=== PATIENT | female | born 1970 | race Caucasian/White ===

== ENCOUNTER 2018-01-07 15:59 | Emergency (ER) | payer MEDICAID ==
[2018-01-07 17:38] LABS: ADD MAN DIFF? NO
[2018-01-07 17:40] LABS: WHITE BLOOD COUNT 7.9 10^3/ul (4.8-10.8)
[2018-01-07 17:40] LABS: BASOPHIL # 0.1 10^3/ul (0.0-0.1); BASOPHILS % 0.6 % (0.0-2.0); EOSINOPHILS # 0.3 10^3/ul (0.0-0.5); EOSINOPHILS % 3.3 % (0.0-7.0); HEMATOCRIT 35.3 % (37.0-47.0); HEMOGLOBIN 11.1 g/dl (12.0-16.0); LYMPHOCYTES # 1.7 10^3/ul (0.8-2.9); LYMPHOCYTES % 21.4 % (15.0-51.0); MEAN CORPUSCULAR HEMOGLOBIN 28.8 pg (29.0-33.0); MEAN CORPUSCULAR HGB CONC 31.4 g/dl (32.0-37.0); MEAN CORPUSCULAR VOLUME 91.7 fl (82.0-101.0); MEAN PLATELET VOLUME 10.8 fl (7.4-10.4); MONOCYTE # 0.6 10^3/ul (0.3-0.9); MONOCYTES % 7.1 % (0.0-11.0); NEUTROPHIL # 5.3 10^3/ul (1.6-7.5); NEUTROPHILS % 67.2 % (39.0-77.0); PLATELET COUNT 281 10^3/UL (140-415); RED BLOOD COUNT 3.85 10^6/ul (4.20-5.40); RED CELL DISTRIBUTION WIDTH 12.8 % (11.5-14.5)
[2018-01-07 17:48] LABS: ADD UMIC YES; UR ASCORBIC ACID NEGATIVE (NEGATIVE); UR BILIRUBIN (Dip) NEGATIVE (NEGATIVE); UR BLOOD (Dip) 3+ mg/dL (NEGATIVE); UR CLARITY CLEAR (CLEAR); UR COLOR YELLOW (YELLOW); UR GLUCOSE (Dip) NEGATIVE (NEGATIVE); UR KETONES (Dip) NEGATIVE (NEGATIVE); UR LEUKOCYTE ESTERASE (Dip) NEGATIVE Leu/ul (NEGATIVE); UR NITRITE (Dip) NEGATIVE (NEGATIVE); UR RBC 1 /HPF (0-5); UR SPECIFIC GRAVITY (Dip) 1.011 (1.003-1.030); UR TOTAL PROTEIN (Dip) NEGATIVE (NEGATIVE); UR UROBILINOGEN (Dip) NEGATIVE (NEGATIVE); UR WBC 2 /HPF (0-5)
[2018-01-07 18:23] LABS: ALANINE AMINOTRANSFERASE 23 IU/L (13-69); ALBUMIN 4.4 g/dl (3.3-4.9); ALBUMIN/GLOBULIN RATIO 1.22; ALKALINE PHOSPHATASE 95 IU/L (42-121); ANION GAP 15 (8-16); ASPARTATE AMINO TRANSFERASE 21 IU/L (15-46); BILIRUBIN,INDIRECT 0.3 mg/dl (0-1.1); BILIRUBIN,TOTAL 0.3 mg/dl (0.2-1.3); BLOOD UREA NITROGEN 9 mg/dl (7-20); CALCIUM 9.2 mg/dl (8.4-10.2); CARBON DIOXIDE 29 mmol/L (21-31); CHLORIDE 104 mmol/L (97-110); CREATININE 0.69 mg/dl (0.44-1.00); GLUCOSE 98 mg/dl (70-220); LIPASE 69 U/L (23-300); POTASSIUM 3.6 mmol/L (3.5-5.1); SODIUM 144 mmol/L (135-144)
== END 2018-01-07 19:45 | disposition home or self-care (01) ==
LOC: FTE 15:59
DX: D25.9 Leiomyoma of uterus, unspecified (principal)
CPT/HCPCS: 74176; 76830; 76856; 80053; 81001; 81025; 83690; 85025; 99285-25

== ENCOUNTER 2018-02-01 15:16 | Emergency (ER) | payer MEDICAID ==
[2018-02-01 17:15] LABS: URINE BLOOD (Dip) POC 3+ (NEGATIVE); URINE GLUCOSE (Dip) POC Negative (NEGATIVE); URINE KETONES (Dip) POC Negative (NEGATIVE); URINE LEUKOCYTE EST (Dip) POC 2+ (NEGATIVE); URINE NITRITE (Dip) POC Negative (NEGATIVE); URINE TOTAL PROTEIN POC 1+ (NEGATIVE)
[2018-02-01 17:15] LABS: URINE PH (Dip) POC 5.5 (5.0-8.5)
[2018-02-01] MEDS: ACETAMINOPHEN 500 MG TAB PO (17:30)
[2018-02-01] MEDS: ONDANSETRON 4 MG INJ IV (17:30)
[2018-02-01 17:33] LABS: ADD MAN DIFF? NO
[2018-02-01 17:35] LABS: WHITE BLOOD COUNT 9.4 10^3/ul (4.8-10.8)
[2018-02-01 17:35] LABS: BASOPHILS % 0.4 % (0.0-2.0); EOSINOPHILS # 0.2 10^3/ul (0.0-0.5); EOSINOPHILS % 2.3 % (0.0-7.0); HEMATOCRIT 37.8 % (37.0-47.0); HEMOGLOBIN 11.9 g/dl (12.0-16.0); LYMPHOCYTES # 1.6 10^3/ul (0.8-2.9); MEAN CORPUSCULAR HEMOGLOBIN 27.8 pg (29.0-33.0); MEAN CORPUSCULAR HGB CONC 31.5 g/dl (32.0-37.0); MEAN CORPUSCULAR VOLUME 88.3 fl (82.0-101.0); MEAN PLATELET VOLUME 11.2 fl (7.4-10.4); MONOCYTE # 0.8 10^3/ul (0.3-0.9); MONOCYTES % 8.1 % (0.0-11.0); NEUTROPHIL # 6.8 10^3/ul (1.6-7.5); NEUTROPHILS % 71.9 % (39.0-77.0); PLATELET COUNT 203 10^3/UL (140-415); RED BLOOD COUNT 4.28 10^6/ul (4.20-5.40); RED CELL DISTRIBUTION WIDTH 13.8 % (11.5-14.5)
[2018-02-01 17:53] LABS: ALANINE AMINOTRANSFERASE 29 IU/L (13-69); ALBUMIN 4.6 g/dl (3.3-4.9); ALBUMIN/GLOBULIN RATIO 1.31; ALKALINE PHOSPHATASE 78 IU/L (42-121); ANION GAP 15 (8-16); ASPARTATE AMINO TRANSFERASE 23 IU/L (15-46); BILIRUBIN,INDIRECT 0.5 mg/dl (0-1.1); BILIRUBIN,TOTAL 0.5 mg/dl (0.2-1.3); BLOOD UREA NITROGEN 8 mg/dl (7-20); CALCIUM 9.4 mg/dl (8.4-10.2); CARBON DIOXIDE 27 mmol/L (21-31); CHLORIDE 105 mmol/L (97-110); GLUCOSE 106 mg/dl (70-220); LIPASE 33 U/L (23-300); POTASSIUM 3.8 mmol/L (3.5-5.1); SODIUM 143 mmol/L (135-144); TOTAL PROTEIN 8.1 g/dl (6.1-8.1)
[2018-02-01 18:08] LABS: ADD UMIC YES; UR ASCORBIC ACID NEGATIVE (NEGATIVE); UR BACTERIA FEW /HPF (NONE SEEN); UR BILIRUBIN (Dip) NEGATIVE (NEGATIVE); UR BLOOD (Dip) 3+ mg/dL (NEGATIVE); UR CLARITY SLIGHTLY CLOUDY (CLEAR); UR COLOR YELLOW (YELLOW); UR GLUCOSE (Dip) NEGATIVE (NEGATIVE); UR KETONES (Dip) NEGATIVE (NEGATIVE); UR LEUKOCYTE ESTERASE (Dip) 3+ Leu/ul (NEGATIVE); UR NITRITE (Dip) NEGATIVE (NEGATIVE); UR RBC 6 /HPF (0-5); UR SPECIFIC GRAVITY (Dip) 1.005 (1.003-1.030); UR SQUAMOUS EPITHELIAL CELL MODERATE /HPF (FEW); UR TOTAL PROTEIN (Dip) NEGATIVE (NEGATIVE); UR UROBILINOGEN (Dip) NEGATIVE (NEGATIVE); UR WBC 18 /HPF (0-5)
== END 2018-02-01 19:50 | disposition home or self-care (01) ==
LOC: FTE 15:16
DX: D25.9 Leiomyoma of uterus, unspecified (principal); R10.2 Pelvic and perineal pain; R11.10 Vomiting, unspecified
CPT/HCPCS: 36415; 76856; 80053; 81001; 81003; 81025; 83690; 85025; 88305; 96374; 99285-25

== ENCOUNTER 2018-02-04 14:21 | Emergency (ER) | payer MEDICAID ==
[2018-02-04 15:45] LABS: URINE BLOOD (Dip) POC 3+ (NEGATIVE); URINE GLUCOSE (Dip) POC Negative (NEGATIVE); URINE KETONES (Dip) POC 1+ (NEGATIVE); URINE LEUKOCYTE EST (Dip) POC 1+ (NEGATIVE); URINE NITRITE (Dip) POC Negative (NEGATIVE); URINE TOTAL PROTEIN POC 2+ (NEGATIVE)
[2018-02-04 15:45] LABS: URINE PH (Dip) POC 6.5 (5.0-8.5)
[2018-02-04] MEDS: morphine 4 MG/ML VIAL IV (15:47)
[2018-02-04] MEDS: ONDANSETRON 4 MG INJ IV (15:47)
[2018-02-04] MEDS: SOD CHLORIDE 0.9% 1,000 ML IV (15:47)
[2018-02-04 15:48] LABS: ADD MAN DIFF? NO
[2018-02-04 15:52] LABS: BASOPHILS % 0.3 % (0.0-2.0); EOSINOPHILS # 0.1 10^3/ul (0.0-0.5); EOSINOPHILS % 0.5 % (0.0-7.0); HEMOGLOBIN 12.2 g/dl (12.0-16.0); LYMPHOCYTES # 0.8 10^3/ul (0.8-2.9); MEAN CORPUSCULAR HEMOGLOBIN 28.8 pg (29.0-33.0); MEAN CORPUSCULAR HGB CONC 32.1 g/dl (32.0-37.0); MEAN CORPUSCULAR VOLUME 89.6 fl (82.0-101.0); MEAN PLATELET VOLUME 10.7 fl (7.4-10.4); MONOCYTE # 0.7 10^3/ul (0.3-0.9); MONOCYTES % 5.3 % (0.0-11.0); NEUTROPHIL # 11.2 10^3/ul (1.6-7.5); NEUTROPHILS % 87.5 % (39.0-77.0); PLATELET COUNT 237 10^3/UL (140-415); RED BLOOD COUNT 4.24 10^6/ul (4.20-5.40); RED CELL DISTRIBUTION WIDTH 13.1 % (11.5-14.5)
[2018-02-04 15:52] LABS: WHITE BLOOD COUNT 12.8 10^3/ul (4.8-10.8)
[2018-02-04 15:59] LABS: ADD UMIC YES; UR ASCORBIC ACID NEGATIVE (NEGATIVE); UR BACTERIA FEW /HPF (NONE SEEN); UR BILIRUBIN (Dip) NEGATIVE (NEGATIVE); UR BLOOD (Dip) 3+ mg/dL (NEGATIVE); UR CLARITY CLOUDY (CLEAR); UR COLOR YELLOW (YELLOW); UR GLUCOSE (Dip) NEGATIVE (NEGATIVE); UR KETONES (Dip) TRACE mg/dL (NEGATIVE); UR LEUKOCYTE ESTERASE (Dip) 3+ Leu/ul (NEGATIVE); UR MUCUS FEW /HPF (NONE SEEN); UR NITRITE (Dip) NEGATIVE (NEGATIVE); UR RBC > 182 /HPF (0-5); UR SQUAMOUS EPITHELIAL CELL FEW /HPF (FEW); UR TOTAL PROTEIN (Dip) 2+ mg/dl (NEGATIVE); UR UROBILINOGEN (Dip) 1+ mg/dL (NEGATIVE); UR WBC > 182 /HPF (0-5)
[2018-02-04 16:10] LABS: LIPASE 27 U/L (23-300)
[2018-02-04 16:12] LABS: ALANINE AMINOTRANSFERASE 30 IU/L (13-69); ALBUMIN 4.5 g/dl (3.3-4.9); ALBUMIN/GLOBULIN RATIO 1.36; ALKALINE PHOSPHATASE 80 IU/L (42-121); ANION GAP 13 (8-16); ASPARTATE AMINO TRANSFERASE 20 IU/L (15-46); BILIRUBIN,INDIRECT 0.7 mg/dl (0-1.1); BILIRUBIN,TOTAL 0.7 mg/dl (0.2-1.3); BLOOD UREA NITROGEN 10 mg/dl (7-20); CALCIUM 9.1 mg/dl (8.4-10.2); CARBON DIOXIDE 26 mmol/L (21-31); CHLORIDE 104 mmol/L (97-110); CREATININE 0.64 mg/dl (0.44-1.00); GLUCOSE 130 mg/dl (70-220); POTASSIUM 3.4 mmol/L (3.5-5.1); SODIUM 140 mmol/L (135-144); TOTAL PROTEIN 7.8 g/dl (6.1-8.1)
== END 2018-02-04 17:35 | disposition home or self-care (01) ==
LOC: FTE 14:21
DX: D25.9 Leiomyoma of uterus, unspecified (principal)
CPT/HCPCS: 36415; 76856; 80053; 81001; 81003; 81025; 83690; 85025; 87086; 96361; 96374; 96375; 99285-25

== ENCOUNTER 2018-02-06 22:33 | Inpatient (IN) | payer MEDICAID ==
[2018-02-06 22:56] LABS: ADD MAN DIFF? NO
[2018-02-06 22:58] LABS: BASOPHILS % 0.5 % (0.0-2.0); EOSINOPHILS % 0.3 % (0.0-7.0); HEMATOCRIT 35.6 % (37.0-47.0); HEMOGLOBIN 11.4 g/dl (12.0-16.0); LYMPHOCYTES # 1.5 10^3/ul (0.8-2.9); LYMPHOCYTES % 20.8 % (15.0-51.0); MEAN CORPUSCULAR VOLUME 87.5 fl (82.0-101.0); MEAN PLATELET VOLUME 10.7 fl (7.4-10.4); MONOCYTE # 0.1 10^3/ul (0.3-0.9); MONOCYTES % 1.8 % (0.0-11.0); NEUTROPHIL # 5.5 10^3/ul (1.6-7.5); NEUTROPHILS % 74.7 % (39.0-77.0); PLATELET COUNT 212 10^3/UL (140-415); RED BLOOD COUNT 4.07 10^6/ul (4.20-5.40); RED CELL DISTRIBUTION WIDTH 13.1 % (11.5-14.5)
[2018-02-06 22:58] LABS: WHITE BLOOD COUNT 7.4 10^3/ul (4.8-10.8)
[2018-02-06] MEDS: ONDANSETRON 4 MG INJ IV ×2 (23:09→23:49)
[2018-02-06] MEDS: ACETAMINOPHEN 325 MG TAB PO (23:09)
[2018-02-06] MEDS: SOD CHLORIDE 0.9% 1,000 ML IV (23:10)
[2018-02-06] MEDS: morphine 4 MG/ML VIAL IV (23:10)
[2018-02-06 23:16] LABS: ALANINE AMINOTRANSFERASE 39 IU/L (13-69); ALBUMIN 4.1 g/dl (3.3-4.9); ALBUMIN/GLOBULIN RATIO 1.28; ALKALINE PHOSPHATASE 104 IU/L (42-121); ANION GAP 17 (8-16); ASPARTATE AMINO TRANSFERASE 64 IU/L (15-46); BILIRUBIN,INDIRECT 0.5 mg/dl (0-1.1); BILIRUBIN,TOTAL 0.5 mg/dl (0.2-1.3); BLOOD UREA NITROGEN 5 mg/dl (7-20); CALCIUM 8.8 mg/dl (8.4-10.2); CARBON DIOXIDE 25 mmol/L (21-31); CHLORIDE 101 mmol/L (97-110); CREATININE 0.92 mg/dl (0.44-1.00); GLUCOSE 144 mg/dl (70-220); LIPASE 38 U/L (23-300); POTASSIUM 3.6 mmol/L (3.5-5.1); SODIUM 139 mmol/L (135-144); TOTAL PROTEIN 7.3 g/dl (6.1-8.1)
[2018-02-06 23:19] LABS: INR 1.12; PROTIME 14.6 Sec (11.9-14.9); PT RATIO 1.1
[2018-02-06 23:19] LABS: LACTIC ACID 5.6 mmol/L (0.5-2.0)
[2018-02-06 23:20] LABS: PARTIAL THROMBOPLASTIN TIME 28.1 Sec (25.0-35.0)
[2018-02-06 23:27] LABS: TROPONIN-I < 0.010 ng/ml (0.000-0.120)
[2018-02-07] MEDS: CEFEPIME 2GM/50 ML (PMX) 50 ML IVPB (00:19)
[2018-02-07] MEDS: SODIUM CHLORIDE 0.9% 1L BAG IV* (00:19)
[2018-02-07] MEDS: METOCLOPRAMIDE 10 MG INJ IV (00:19)
[2018-02-07] MEDS: VANCOMYCIN 1 GM (PMX) 250 ML IVPB (00:40)
[2018-02-07 01:06] LABS: LACTIC ACID 2.4 mmol/L (0.5-2.0)
[2018-02-07 01:49] LABS: ADD UMIC YES; UR ASCORBIC ACID 20 mg/dL (NEGATIVE); UR BACTERIA FEW /HPF (NONE SEEN); UR BILIRUBIN (Dip) NEGATIVE (NEGATIVE); UR BLOOD (Dip) 3+ mg/dL (NEGATIVE); UR CLARITY CLEAR (CLEAR); UR COLOR YELLOW (YELLOW); UR GLUCOSE (Dip) NEGATIVE (NEGATIVE); UR KETONES (Dip) NEGATIVE (NEGATIVE); UR LEUKOCYTE ESTERASE (Dip) 1+ Leu/ul (NEGATIVE); UR MUCUS FEW /HPF (NONE SEEN); UR NITRITE (Dip) NEGATIVE (NEGATIVE); UR RBC 55 /HPF (0-5); UR SPECIFIC GRAVITY (Dip) 1.012 (1.003-1.030); UR TOTAL PROTEIN (Dip) NEGATIVE (NEGATIVE); UR UROBILINOGEN (Dip) NEGATIVE (NEGATIVE); UR WBC 15 /HPF (0-5)
[2018-02-07] MEDS: ACETAMINOPHEN 500 MG TAB PO (02:55)
[2018-02-07] MEDS: IBUPROFEN 600 MG TAB PO (02:55)
[2018-02-07] MEDS: SOD CHLORIDE 0.9% 1,000 ML IV ×2 (04:29→15:09)
[2018-02-07] MEDS: HYDROCODONE/APAP (5/325) TAB PO ×2 (04:36→15:04)
[2018-02-07] MEDS ORDERED: SOD CHLORIDE 0.9% 1,000 ML IV (06:30)
[2018-02-07 07:25] LABS: ADD MAN DIFF? NO
[2018-02-07 07:32] LABS: WHITE BLOOD COUNT 8.5 10^3/ul (4.8-10.8)
[2018-02-07 07:32] LABS: ABNORMAL IP MESSAGE 1; BASOPHILS % 0.1 % (0.0-2.0); HEMATOCRIT 28.7 % (37.0-47.0); LYMPHOCYTES # 0.4 10^3/ul (0.8-2.9); LYMPHOCYTES % 5.2 % (15.0-51.0); MEAN CORPUSCULAR HEMOGLOBIN 27.4 pg (29.0-33.0); MEAN CORPUSCULAR HGB CONC 31.4 g/dl (32.0-37.0); MEAN CORPUSCULAR VOLUME 87.2 fl (82.0-101.0); MEAN PLATELET VOLUME 10.6 fl (7.4-10.4); MONOCYTE # 0.3 10^3/ul (0.3-0.9); MONOCYTES % 3.2 % (0.0-11.0); NEUTROPHIL # 7.6 10^3/ul (1.6-7.5); NEUTROPHILS % 89.9 % (39.0-77.0); PLATELET COUNT 156 10^3/UL (140-415); RED BLOOD COUNT 3.29 10^6/ul (4.20-5.40); RED CELL DISTRIBUTION WIDTH 13.5 % (11.5-14.5)
[2018-02-07 07:35] LABS: POSITIVE DIFF @See below
[2018-02-07 07:52] LABS: LACTIC ACID 1.4 mmol/L (0.5-2.0)
[2018-02-07 08:17] LABS: ALANINE AMINOTRANSFERASE 77 IU/L (13-69); ALBUMIN 2.5 g/dl (3.3-4.9); ALBUMIN/GLOBULIN RATIO 1.04; ALKALINE PHOSPHATASE 75 IU/L (42-121); ANION GAP 12 (8-16); ASPARTATE AMINO TRANSFERASE 95 IU/L (15-46); BILIRUBIN,INDIRECT 0.4 mg/dl (0-1.1); BILIRUBIN,TOTAL 0.4 mg/dl (0.2-1.3); BLOOD UREA NITROGEN 8 mg/dl (7-20); CALCIUM 6.9 mg/dl (8.4-10.2); CARBON DIOXIDE 21 mmol/L (21-31); CHLORIDE 111 mmol/L (97-110); CREATININE 0.68 mg/dl (0.44-1.00); GLUCOSE 108 mg/dl (70-220); MAGNESIUM 1.4 mg/dl (1.7-2.5); PHOSPHORUS 1.8 mg/dl (2.5-4.9); SODIUM 141 mmol/L (135-144); TOTAL PROTEIN 4.9 g/dl (6.1-8.1)
[2018-02-07 08:26] LABS: POTASSIUM 2.6 mmol/L (3.5-5.1)
[2018-02-07] MEDS: MEROPENEM 500MG/50 ML (PMX) 50 ML IVPB (09:11)
[2018-02-07] MEDS ORDERED: VANCOMYCIN IV PER PHARMACY XX (12:00)
[2018-02-07] MEDS: POTASSIUM CHLORIDE 100 ML IVPB ×3 (12:02→17:54)
[2018-02-07] MEDS: MAGNESIUM SULFATE 3 GM in DEXTROSE 5% 100 ML IVPB (12:19)
[2018-02-07] MEDS ORDERED: MEROPENEM 1 GM/50ML(PMX) 50 ML IVPB (14:00)
[2018-02-07] MEDS ORDERED: VANCOMYCIN 1.25 GM in SOD CHLORIDE 0.9% 250 ML IVPB (15:00)
[2018-02-07] MEDS: ONDANSETRON 4 MG INJ IV (15:17)
[2018-02-07] MEDS: traMADol 50 MG TAB PO ×2 (15:47→20:12)
[2018-02-07] MEDS: POTASSIUM PHOSPHATE 30 MM in SOD CHLORIDE 0.9% 250 ML IVPB (16:30)
[2018-02-07] MEDS: ACETAMINOPHEN 325 MG TAB PO (20:11)
[2018-02-07] MEDS: MEROPENEM 1 GM/50ML(PMX) 50 ML IVPB (21:58)
[2018-02-07 22:29] LABS: POTASSIUM 3.4 mmol/L (3.5-5.1)
[2018-02-07] MEDS: VANCOMYCIN 1.25 GM in SOD CHLORIDE 0.9% 250 ML IVPB (22:50)
[2018-02-08] MEDS: SOD CHLORIDE 0.9% 1,000 ML IV ×4 (00:30→21:00)
[2018-02-08] MEDS: POTASSIUM CHLORIDE 100 ML IVPB ×2 (03:55→06:20)
[2018-02-08] MEDS: traMADol 50 MG TAB PO ×2 (04:51→18:43)
[2018-02-08 06:59] LABS: HEMATOCRIT 31.5 % (37.0-47.0); HEMOGLOBIN 9.9 g/dl (12.0-16.0); MEAN CORPUSCULAR HEMOGLOBIN 27.7 pg (29.0-33.0); MEAN CORPUSCULAR HGB CONC 31.4 g/dl (32.0-37.0); MEAN PLATELET VOLUME 11.2 fl (7.4-10.4); PLATELET COUNT 158 10^3/UL (140-415); RED BLOOD COUNT 3.58 10^6/ul (4.20-5.40); RED CELL DISTRIBUTION WIDTH 13.9 % (11.5-14.5)
[2018-02-08 07:06] LABS: POSITIVE DIFF @See below
[2018-02-08 07:07] LABS: ADD MAN DIFF? YES
[2018-02-08 07:11] LABS: HEMOGLOBIN A1C 5.8 % (0-5.9)
[2018-02-08 07:42] LABS: MAGNESIUM 2.4 mg/dl (1.7-2.5)
[2018-02-08 07:42] LABS: PHOSPHORUS 2.3 mg/dl (2.5-4.9)
[2018-02-08 07:47] LABS: ALANINE AMINOTRANSFERASE 76 IU/L (13-69); ALBUMIN 3.1 g/dl (3.3-4.9); ALBUMIN/GLOBULIN RATIO 1.14; ALKALINE PHOSPHATASE 93 IU/L (42-121); ANION GAP 11 (8-16); ASPARTATE AMINO TRANSFERASE 76 IU/L (15-46); BILIRUBIN,INDIRECT 0.6 mg/dl (0-1.1); BILIRUBIN,TOTAL 0.6 mg/dl (0.2-1.3); BLOOD UREA NITROGEN 7 mg/dl (7-20); CALCIUM 7.4 mg/dl (8.4-10.2); CARBON DIOXIDE 20 mmol/L (21-31); CHLORIDE 111 mmol/L (97-110); CREATININE 0.59 mg/dl (0.44-1.00); GLUCOSE 87 mg/dl (70-220); POTASSIUM 4.2 mmol/L (3.5-5.1); SODIUM 138 mmol/L (135-144); TOTAL PROTEIN 5.8 g/dl (6.1-8.1)
[2018-02-08 08:09] LABS: CHOL/HDL RATIO 4.7 RATIO; HDL CHOLESTEROL 24 mg/dl (34-88); LDL CHOLESTEROL,CALCULATED 38 mg/dl; TRIGLYCERIDES 254 mg/dl (0-149)
[2018-02-08 08:09] LABS: CHOLESTEROL 113 mg/dl (100-200)
[2018-02-08] MEDS: MEROPENEM 1 GM/50ML(PMX) 50 ML IVPB ×3 (08:44→21:50)
[2018-02-08 09:54] LABS: ANISOCYTOSIS 1+ (0-0); BAND NEUTROPHILS #M 3.5 10^3/ul (0.0-0.6); BAND NEUTROPHILS % (M) 35 % (0-4); GIANT THROMBO% (M) 2 % (0-0); LYMPHOCYTES #M 0.3 10^3/ul (0.8-2.9); LYMPHOCYTES % (M) 3 % (15-51); MICROCYTOSIS 1+ (0-0); MONOCYTE #M 0.3 10^3/ul (0.3-0.9); MONOCYTES % (M) 3 % (0-11); PLATELET ESTIMATE NORMAL; POIKILOCYTOSIS 1+ (0-0); POLYCHROMASIA 1+ (0-0); SEG NEUT #M 6.3 10^3/ul (1.6-7.5); SEGMENTED NEUTROPHILS (M) % 59 % (39-77); SMUDGE%M 6 % (0-0)
[2018-02-08] MEDS: ONDANSETRON 4 MG INJ IV (11:48)
[2018-02-08] MEDS: VANCOMYCIN 1.25 GM in SOD CHLORIDE 0.9% 250 ML IVPB ×2 (11:49→23:00)
[2018-02-08] MEDS: HYDROmorphONE 1 MG/ML SYG IV ×2 (12:12→21:45)
[2018-02-09] MEDS: HYDROmorphONE 1 MG/ML SYG IV ×2 (04:23→13:00)
[2018-02-09] MEDS: SOD CHLORIDE 0.9% 1,000 ML IV ×3 (04:25→21:00)
[2018-02-09] MEDS: MEROPENEM 1 GM/50ML(PMX) 50 ML IVPB (05:24)
[2018-02-09 08:27] LABS: ADD MAN DIFF? NO
[2018-02-09 08:36] LABS: BASOPHILS % 0.3 % (0.0-2.0); EOSINOPHILS % 0.4 % (0.0-7.0); HEMATOCRIT 29.3 % (37.0-47.0); HEMOGLOBIN 9.5 g/dl (12.0-16.0); LYMPHOCYTES # 1.2 10^3/ul (0.8-2.9); LYMPHOCYTES % 11.1 % (15.0-51.0); MEAN CORPUSCULAR HEMOGLOBIN 28.4 pg (29.0-33.0); MEAN CORPUSCULAR HGB CONC 32.4 g/dl (32.0-37.0); MEAN CORPUSCULAR VOLUME 87.5 fl (82.0-101.0); MEAN PLATELET VOLUME 11.3 fl (7.4-10.4); MONOCYTE # 0.5 10^3/ul (0.3-0.9); NEUTROPHIL # 8.7 10^3/ul (1.6-7.5); PLATELET COUNT 190 10^3/UL (140-415); RED BLOOD COUNT 3.35 10^6/ul (4.20-5.40); RED CELL DISTRIBUTION WIDTH 13.8 % (11.5-14.5)
[2018-02-09 08:36] LABS: WHITE BLOOD COUNT 10.6 10^3/ul (4.8-10.8)
[2018-02-09 09:01] LABS: MAGNESIUM 1.9 mg/dl (1.7-2.5)
[2018-02-09 09:02] LABS: ALANINE AMINOTRANSFERASE 54 IU/L (13-69); ALBUMIN 3.1 g/dl (3.3-4.9); ALKALINE PHOSPHATASE 94 IU/L (42-121); ANION GAP 9 (8-16); ASPARTATE AMINO TRANSFERASE 47 IU/L (15-46); BILIRUBIN,INDIRECT 0.6 mg/dl (0-1.1); BILIRUBIN,TOTAL 0.6 mg/dl (0.2-1.3); BLOOD UREA NITROGEN 6 mg/dl (7-20); CALCIUM 7.7 mg/dl (8.4-10.2); CARBON DIOXIDE 28 mmol/L (21-31); CHLORIDE 104 mmol/L (97-110); CREATININE 0.47 mg/dl (0.44-1.00); GLUCOSE 96 mg/dl (70-220); POTASSIUM 3.1 mmol/L (3.5-5.1); SODIUM 138 mmol/L (135-144); TOTAL PROTEIN 5.9 g/dl (6.1-8.1)
[2018-02-09] MEDS: FLUCONAZOLE 200 MG TAB PO (11:14)
[2018-02-09] MEDS: CEFTRIAXONE 1 GM/50 ML (PMX) 50 ML IVPB (11:14)
[2018-02-09 12:00] LABS: VANCOMYCIN,TROUGH < 5.0 ug/ml (10.0-20.0)
[2018-02-09] MEDS: POTASSIUM PHOSPHATE 30 MM in SOD CHLORIDE 0.9% 250 ML IVPB (16:03)
[2018-02-09] MEDS: HYDROCODONE/APAP (5/325) TAB PO ×2 (16:09→21:24)
[2018-02-10] MEDS: SOD CHLORIDE 0.9% 1,000 ML IV ×3 (02:09→21:30)
[2018-02-10] MEDS: HYDROCODONE/APAP (5/325) TAB PO ×2 (05:14→18:54)
[2018-02-10 06:37] LABS: ADD MAN DIFF? NO
[2018-02-10 06:47] LABS: BASOPHILS % 0.3 % (0.0-2.0); EOSINOPHILS # 0.1 10^3/ul (0.0-0.5); HEMATOCRIT 30.7 % (37.0-47.0); HEMOGLOBIN 9.8 g/dl (12.0-16.0); LYMPHOCYTES # 1.1 10^3/ul (0.8-2.9); LYMPHOCYTES % 11.5 % (15.0-51.0); MEAN CORPUSCULAR HEMOGLOBIN 27.1 pg (29.0-33.0); MEAN CORPUSCULAR HGB CONC 31.9 g/dl (32.0-37.0); MEAN CORPUSCULAR VOLUME 84.8 fl (82.0-101.0); MEAN PLATELET VOLUME 11.2 fl (7.4-10.4); MONOCYTE # 0.7 10^3/ul (0.3-0.9); MONOCYTES % 6.9 % (0.0-11.0); NEUTROPHIL # 7.4 10^3/ul (1.6-7.5); NEUTROPHILS % 77.9 % (39.0-77.0); PLATELET COUNT 206 10^3/UL (140-415); RED BLOOD COUNT 3.62 10^6/ul (4.20-5.40); RED CELL DISTRIBUTION WIDTH 13.9 % (11.5-14.5)
[2018-02-10 06:47] LABS: WHITE BLOOD COUNT 9.5 10^3/ul (4.8-10.8)
[2018-02-10 07:05] LABS: ANION GAP 11 (8-16); BLOOD UREA NITROGEN 5 mg/dl (7-20); CALCIUM 8.3 mg/dl (8.4-10.2); CARBON DIOXIDE 29 mmol/L (21-31); CHLORIDE 101 mmol/L (97-110); CREATININE 0.48 mg/dl (0.44-1.00); GLUCOSE 104 mg/dl (70-220); SODIUM 138 mmol/L (135-144)
[2018-02-10 07:07] LABS: MAGNESIUM 1.8 mg/dl (1.7-2.5)
[2018-02-10 07:07] LABS: PHOSPHORUS 2.7 mg/dl (2.5-4.9)
[2018-02-10] MEDS: POTASSIUM CHLORIDE (SR) 20 MEQ TAB PO (08:55)
[2018-02-10] MEDS: CEFTRIAXONE 1 GM/50 ML (PMX) 50 ML IVPB (10:27)
[2018-02-10] MEDS ORDERED: D5W-0.45 NACL + KCL 20 MEQ 1,000 ML IV (11:00)
[2018-02-10] MEDS: HYDROmorphONE 1 MG/ML SYG IV (22:41)
[2018-02-11] MEDS: hydrALAzine 20 MG INJ IV (00:29)
[2018-02-11] MEDS: HYDROCODONE/APAP (5/325) TAB PO ×2 (01:33→21:50)
[2018-02-11] MEDS: SOD CHLORIDE 0.9% 1,000 ML IV ×2 (04:49→05:00)
[2018-02-11] MEDS: CEFTRIAXONE 1 GM/50 ML (PMX) 50 ML IVPB (10:52)
[2018-02-11] MEDS: ACETAMINOPHEN 325 MG TAB PO (15:42)
[2018-02-12] MEDS: ACETAMINOPHEN 325 MG TAB PO ×3 (01:54→21:38)
[2018-02-12 06:18] LABS: HEMOGLOBIN 10.3 g/dl (12.0-16.0); MEAN CORPUSCULAR HEMOGLOBIN 26.7 pg (29.0-33.0); MEAN CORPUSCULAR HGB CONC 31.2 g/dl (32.0-37.0); MEAN CORPUSCULAR VOLUME 85.5 fl (82.0-101.0); MEAN PLATELET VOLUME 11.2 fl (7.4-10.4); PLATELET COUNT 312 10^3/UL (140-415); RED BLOOD COUNT 3.86 10^6/ul (4.20-5.40); RED CELL DISTRIBUTION WIDTH 14.4 % (11.5-14.5)
[2018-02-12 06:18] LABS: WHITE BLOOD COUNT 10.6 10^3/ul (4.8-10.8)
[2018-02-12 06:23] LABS: ADD MAN DIFF? YES; POSITIVE DIFF @See below
[2018-02-12 06:35] LABS: PHOSPHORUS 4.2 mg/dl (2.5-4.9)
[2018-02-12 06:35] LABS: MAGNESIUM 1.9 mg/dl (1.7-2.5)
[2018-02-12 06:43] LABS: ANION GAP 10 (8-16); BLOOD UREA NITROGEN 6 mg/dl (7-20); CALCIUM 8.7 mg/dl (8.4-10.2); CARBON DIOXIDE 29 mmol/L (21-31); CHLORIDE 103 mmol/L (97-110); GLUCOSE 97 mg/dl (70-220); POTASSIUM 3.3 mmol/L (3.5-5.1); SODIUM 139 mmol/L (135-144)
[2018-02-12 07:58] LABS: BAND NEUTROPHILS #M 0.1 10^3/ul (0.0-0.6); BAND NEUTROPHILS % (M) 1 % (0-4); EOSINOPHILS % (M) 4 % (0-7); LYMPHOCYTES #M 1.1 10^3/ul (0.8-2.9); LYMPHOCYTES % (M) 11 % (15-51); METAMYELOCYTES #M 0.2 10^3/ul (0.0-0.0); METAMYELOCYTES %M 2 % (0-0); MONOCYTE #M 0.8 10^3/ul (0.3-0.9); MONOCYTES % (M) 8 % (0-11); PLATELET ESTIMATE NORMAL; POLYCHROMASIA 1+ (0-0); SEG NEUT #M 7.9 10^3/ul (1.6-7.5); SEGMENTED NEUTROPHILS (M) % 74 % (39-77); SMUDGE%M 7 % (0-0)
[2018-02-12] MEDS: POTASSIUM CHLORIDE (SR) 20 MEQ TAB PO (10:32)
[2018-02-12] MEDS: CEFTRIAXONE 1 GM/50 ML (PMX) 50 ML IVPB (10:32)
[2018-02-12] MEDS: HYDROCODONE/APAP (5/325) TAB PO (23:08)
[2018-02-13] MEDS: CEFTRIAXONE 1 GM/50 ML (PMX) 50 ML IVPB (11:01)
[2018-02-13] MEDS: HYDROCODONE/APAP (5/325) TAB PO (18:54)
[2018-02-13] MEDS: traMADol 50 MG TAB PO (21:01)
[2018-02-14] MEDS: ACETAMINOPHEN 325 MG TAB PO ×3 (01:42→17:52)
[2018-02-14 06:00] LABS: ADD MAN DIFF? NO
[2018-02-14 06:06] LABS: WHITE BLOOD COUNT 11.4 10^3/ul (4.8-10.8)
[2018-02-14 06:06] LABS: BASOPHIL # 0.1 10^3/ul (0.0-0.1); BASOPHILS % 0.4 % (0.0-2.0); EOSINOPHILS # 0.3 10^3/ul (0.0-0.5); EOSINOPHILS % 2.5 % (0.0-7.0); HEMATOCRIT 36.7 % (37.0-47.0); HEMOGLOBIN 11.3 g/dl (12.0-16.0); LYMPHOCYTES % 17.3 % (15.0-51.0); MEAN CORPUSCULAR HEMOGLOBIN 26.7 pg (29.0-33.0); MEAN CORPUSCULAR HGB CONC 30.8 g/dl (32.0-37.0); MEAN CORPUSCULAR VOLUME 86.6 fl (82.0-101.0); MEAN PLATELET VOLUME 10.7 fl (7.4-10.4); MONOCYTE # 0.8 10^3/ul (0.3-0.9); MONOCYTES % 7.2 % (0.0-11.0); NEUTROPHIL # 7.9 10^3/ul (1.6-7.5); NEUTROPHILS % 69.4 % (39.0-77.0); PLATELET COUNT 487 10^3/UL (140-415); RED BLOOD COUNT 4.24 10^6/ul (4.20-5.40); RED CELL DISTRIBUTION WIDTH 14.2 % (11.5-14.5)
[2018-02-14 06:26] LABS: PHOSPHORUS 4.6 mg/dl (2.5-4.9)
[2018-02-14 06:26] LABS: MAGNESIUM 2.2 mg/dl (1.7-2.5)
[2018-02-14 06:35] LABS: ANION GAP 15 (8-16); BLOOD UREA NITROGEN 8 mg/dl (7-20); CALCIUM 9.5 mg/dl (8.4-10.2); CARBON DIOXIDE 27 mmol/L (21-31); CHLORIDE 102 mmol/L (97-110); CREATININE 0.59 mg/dl (0.44-1.00); GLUCOSE 105 mg/dl (70-220); POTASSIUM 4.2 mmol/L (3.5-5.1); SODIUM 140 mmol/L (135-144)
[2018-02-14] MEDS: CEFTRIAXONE 1 GM/50 ML (PMX) 50 ML IVPB (10:30)
[2018-02-15] MEDS: CEFTRIAXONE 1 GM/50 ML (PMX) 50 ML IVPB (09:46)
== END 2018-02-15 13:42 | disposition home health service (06) | DRG 872 ==
LOC: PP2 02-13 06:12 → TEL 02-07 02:17 → E/R 22:33
DX: A41.9 Sepsis, unspecified organism (principal); N10 Acute pyelonephritis; R65.20 Severe sepsis without septic shock; D64.9 Anemia, unspecified
CPT/HCPCS: 36415; 71045; 74176; 76856; 80048; 80053; 80061; 80202; 81001; 81025; 83036; 83605; 83690; 83735; 84100; 84132; 84484; 85025; 85610; 85730; 87040; 87086; 93005; 93306; 96374; 96375; 96376; 99291-25; G0378

== ENCOUNTER 2018-02-26 18:44 | Emergency (ER) | payer MEDICAID | END 2018-02-26 19:51 | disposition home or self-care (01) | LOC: FTE 18:44 | DX: Z45.2 Encounter for adjustment and management of vascular access device (principal) | CPT/HCPCS: 81025; 99282 ==

== ENCOUNTER 2018-03-29 10:20 | Emergency (ER) | payer MEDICAID | END 2018-03-29 11:26 | disposition home or self-care (01) | LOC: FTE 10:20 | DX: K08.89 Other specified disorders of teeth and supporting structures (principal); R40.2412 Glasgow coma scale score 13-15, at arrival to emergency department | CPT/HCPCS: 99282 ==